=== PATIENT | female | born 1985 | race Caucasian/White ===

== ENCOUNTER 2016-10-18 07:55 | Day surgery (SDC) | payer OTHER ==
[2016-10-18] VITALS (8 sets, daily range): BP systolic 92–134; BP diastolic 45–81; PULSE 60–89; RESP 12–16; O2SAT 96–100
[~2016-10-18] VITALS: Ht 157.5 cm; Wt 95.1 kg
--- NOTE | 2016-10-18 07:21 | PCM.HPANE ---
Patient Data Surgeon Admitting Provider: Attending Provider:Juanita Mcintyre MD Primary Care Physician:Cyrus Elizabeth MD Other Provider:[facility] Reason for Visit Right Ureteral Stone Ht/WT & BMI Height (Feet): 5 Height (Inches): 2 Weight (Kilograms): 97.07 Body Mass Index 39.00 Allergies Coded Allergies: No Known Allergies (Unverified , 10/17/16) Past Anesthesia History Anesthesia History: Denies:: Anesthesia Reactions, Malignant Hyperthermia Diabetes History Hx Diabetes?: No MRSA MRSA: No Medications Reported Medications diphenhydrAMINE HCl (Benadryl)25 Mg [id number] Mg PO HS PRN Ref 0 10/18/16 Ranitidine 150 Mg [id number] Mg PO BID Ref 0 10/18/16 Tamsulosin (Flomax)0.4 Mg Capsule0.4 Mg PO DAILY Ref 0 10/17/16 History History of ENT Problems?: No Hx of Heart Problems?: No Cardiovascular History: Denies:: Heart Murmur Hypertension Hx of Respiratory Problem?: No Respiratory History: Denies:: Use of C-PAP Machine Hx Neurologic Problems?: Yes Hx of GI Problems?: No Hx of Problems?: Yes Genitourinary History: Positive for:: Kidney Stones (RT URETERAL STONE= CURRENT PROBLEM) Female Hx: Denies:: Currently (S/P C/S) Skin History: Denies:: History Skin Disorders? Pressure Ulcers Hx Musculoskeletal Problems?: No Hx of Psycho/Social Problems?: No Hx Surgeries?: Yes (C/S) Hx Any Other Health Problems?: Yes Other History: Denies:: Cancer Endocrine Disease Hospitalization Thyroid Disease Hx Diabetes: No Have You Smoked inLast 12 mo: No Stop/Bang S-Snoring: Do You Snore Loudly: No T-Tired: feel tired, fatigued: Yes O-Obsered: Observed not breath: No P-Blood Pressure: treated: No B- Body Mass Index > 35 kg/m2: Yes A- Age over 50: No N- Neck Large Circumference: No G- Gender Male: No JORDAN Total Score: 2 Risk Assessment Category Category 1A: Patient has history of documented sleep apnea, and HAS NOT received any narcotic, sedative or anesthesia administration during this stay. Category 1B: Patient has history of documented sleep apnea, and HAS received any narcotic , sedative or anesthesia administration during this stay Category 2: Patient has SUSPECTED Obstructive Sleep Apnea, and HAS received any narcotic , sedative or anesthesia administration during this stay. Category 3: Patient has SUSPECTED Obstructive Sleep Apnea and HAS NOT received narcotic, sedative or anesthesia administration during this stay. Category 4: Outpatient in Procedural Areas with known sleep apnea or who screen positive for High Risk via the STOP/BANG questionnaire. Exam Exam General Appearance: Alert, Oriented X3, Cooperative, No Acute Distress HEENT/AIRWAY: MP 1 Lungs: Normal Air Movement Heart: Regular Rate/Rhythm Plan Impression Patient chart reviewed, patient interviewed and anesthestic plan with risks, benefits, and alternatives discussed, and informed consent obtained. ASA Physical Status: ASA2 Mod Systemic Disease Anesthetic Plan: GA Bene/Risks/Altern/Consents: Yes HP Complete Prior to Induction: Yes Radha Gil DO Oct 18, 2016 07:21
[~2016-10-18 07:55] MED LIST: TAMS0.4C98 PO
[2016-10-18] MEDS ORDERED: fentaNYL-PF 50 mCg/mL 2 mL Inj ONE (07:56)
[2016-10-18] MEDS ORDERED: Ondansetron 2 mg/mL 2 mL Inj ONE (07:56)
[2016-10-18] MEDS ORDERED: Lidocaine PF 1% 30 mL Inj ONE (07:56)
[2016-10-18] MEDS ORDERED: Propofol 10,000 mCg/mL 20 mL Inj ONE (07:56)
[2016-10-18] MEDS ORDERED: Dexamethasone 4 mg/mL Inj ONE (07:56)
[2016-10-18] MEDS ORDERED: CeFAZolin Inj 2 gm / 50mL D5W IV ONE (07:58)
[2016-10-18] MEDS ORDERED: CeFAZolin Inj 2 GM in IV Premix 1 EACH IV ONE (08:00)
[2016-10-18] MEDS ORDERED: RANI150C4 PO (08:15)
[2016-10-18] MEDS ORDERED: DIPH25CA6 PO (08:15)
[2016-10-18] MEDS: Lactated Ringer's 1,000 ML IV SCH ×2 (08:41→09:39)
[2016-10-18] MEDS ORDERED: Lactated Ringer's 500 ML IV PRN (09:59)
[2016-10-18] MEDS ORDERED: Lactated Ringer's 1,000 ML IV SCH (09:59)
[2016-10-18] MEDS ORDERED: HYDROmorphone 1 mg/mL Inj IVPUSH PRN (10:00)
[2016-10-18] MEDS ORDERED: EPHEDrine Sulfate 50 mg/mL Inj IVPUSH PRN (10:00)
[2016-10-18] MEDS ORDERED: fentaNYL-PF 50 mCg/mL 2 mL Inj IVPUSH PRN (10:00)
[2016-10-18] MEDS ORDERED: Ondansetron 2 mg/mL 2 mL Inj IVPUSH PRN (10:00)
[2016-10-18] MEDS ORDERED: Phenylephrine 10,000 mCg/mL Inj IVPUSH PRN (10:00)
[2016-10-18] MEDS ORDERED: MetoCLOpramide 5 mg/mL 2 mL Inj IVPUSH PRN (10:00)
[2016-10-18] MEDS ORDERED: Belladonna Alk-Opium 60 mg Rectal Suppository RECTAL ONE (10:09)
--- NOTE | 2016-10-18 10:52 | PCM.ANEP1 ---
Post Anesthesia Phase 1 PACU Phase 1 Assessment Vital Signs Vital Signs Date Time Temp Pulse Resp B/P Pulse Ox O2 Delivery O2 Flow Rate FiO2 10/18/16 10:45 36.7 69 12 114/67 100 Simple Mask 8 10/18/16 10:40 62 13 102/60 98 Simple Mask 8 10/18/16 10:35 60 13 106/51 98 Simple Mask 8 10/18/16 10:29 61 13 105/49 97 Simple Mask 8 10/18/16 10:26 36.6 63 14 92/45 96 Simple Mask 8 10/18/16 08:17 36.3 80 16 134/81 97 Room Air Anesthetic Administered: GA Level of Alertness: Sleeping, hard to arouse [place]'s with Equal Strength: Yes Pain: No Nausea or Vomiting: No Airway Device: Oralpharangeal Airway Oxygen Delivery: Simple Mask Lungs: Normal Air Movement Radha Gil DO Oct 18, 2016 10:52
--- NOTE | 2016-10-18 10:52 | PCM.ANEP2 ---
Post Anesthesia Evaluation ASA/CMS Post Anesthesia VS in Patient's Normal Range?: Yes Resp Stable; Airway Patent?: Yes CV Function & Hydration Stable: Yes Mental Status Recovered?: Yes Pain control Satisfactory?: Yes N/V Control Satisfactory?: Yes Radha Gil DO Oct 18, 2016 10:52
[2016-10-18] MEDS ORDERED: oxyCODONE-Acetamin 5-325 mg Tablet PO ONE (11:43)
--- NOTE | 2016-10-18 19:40 | OP ---
[address] [address] OPERATIVE REPORT PATIENT: ELIZA HULL : 1985 MR#: [id number] ADMIT: 10/18/2016 JOB ID: [id number] DATE OF SURGERY: 10/18/2016 SURGEON: Juanita Mcintyre MD PREOPERATIVE DIAGNOSIS(ES): Right ureteral calculus. POSTOPERATIVE DIAGNOSIS(ES): Right ureteral calculus. PROCEDURE: 1. Cystoscopy. 2. Laser lithotripsy. 3. Stone basketing. 4. Insertion of stent. ANESTHESIA: General anesthetic, Dr. Gil. DESCRIPTION OF PROCEDURE: Under general anesthetic, the patient was placed in lithotomy position. Genitalia prepped and draped in a sterile manner. A 22-Divehi cystoscope was introduced through a normal urethra. Ureteral orifices were normal in position and appearance. A 0.035 Glidewire was introduced into the right ureter. It could only be advanced approximately 5 cm. The Glidewire was withdrawn. A 15-Divehi balloon dilation catheter was then used to dilate the distal ureter. A 7-Divehi semi-rigid ureteroscope was then advanced into the right ureter. At approximately 15 cm from the orifice, stone was encountered. Using a 360 micron laser fiber, the stone was broken into multiple fragments which were individually basketed. Final inspection of the ureter revealed no residual calculi. A 0.035 Glidewire was introduced into the ureter up to the level of the renal pelvis. Over this, a 6-Divehi 22 double-J stent was passed. When the stent was confirmed to be in good position fluoroscopically, the wire was withdrawn. The patient tolerated the procedure well. A B and O suppository was given for postoperative analgesia. The patient left the operating room in good condition under light anesthesia.
[2016-10-25 15:08] LABS: Stone Color Tan (.)
== END 2016-10-18 23:59 | disposition home or self-care (01) ==
LOC: SAS 07:55
PROVIDERS: ATTEND Urology
PROC: 0T768DZ Dilation of Right Ureter with Intraluminal Device, Via Natural or Artificial Opening Endoscopic (ICD-10-PCS; 2016-10-18)
PROC: 0TF68ZZ Fragmentation in Right Ureter, Via Natural or Artificial Opening Endoscopic (ICD-10-PCS; principal; 2016-10-18 10:00)
DX: N20.1 Calculus of ureter (principal)